=== PATIENT | female | born 1965 | race Caucasian/White ===

== ENCOUNTER 2024-08-22 10:43 | Emergency (ER) | payer OTHER ==
[~2024-08-22] VITALS: Ht 157.5 cm; Wt 59.0 kg
[2024-08-22 10:56] VITALS: BP 138/85; PULSE 95; RESP 18; TEMP 36.50292; O2SAT 98
[2024-08-22 11:53] LABS: INFLUENZA VIRUS A ANTIGEN NEGATIVE (NEG); INFLUENZA VIRUS B ANTIGEN NEGATIVE (NEG)
[2024-08-22] MEDS ORDERED: TORADOL ONE (12:19)
[2024-08-22] MEDS: TORADOL IM STA (12:23)
[2024-08-22 12:28] VITALS: BP 137/82; PULSE 86; RESP 18; O2SAT 98
== END 2024-08-22 12:28 | disposition home or self-care (01) ==
LOC: ER 10:43
DX: H66.93 Otitis media, unspecified, bilateral (principal); Z90.49 Acquired absence of other specified parts of digestive tract; Z20.822 Contact with and (suspected) exposure to COVID-19
CPT/HCPCS: 99283; 87426; 96372; 87070; 87880; 87804 ×2; J1885